=== PATIENT | male | born 1960 | race African-American/Black ===

== ENCOUNTER 2021-03-06 08:05 | Outpatient (CLI) | payer BC | END 2021-03-06 08:06 | disposition home or self-care (01) | LOC: BICCT 08:05 | PROVIDERS: ATTEND Family Medicine | DX: R16.0 Hepatomegaly, not elsewhere classified (principal); D18.03 Hemangioma of intra-abdominal structures; K31.89 Other diseases of stomach and duodenum | CPT/HCPCS: 74170 ==

== ENCOUNTER 2021-06-29 13:16 | Outpatient (CLI) | payer BC | END 2021-06-29 13:17 | disposition home or self-care (01) | LOC: TBSIIMAG 13:16 | PROVIDERS: ATTEND Nurse Practitioner Family | DX: M47.26 Other spondylosis with radiculopathy, lumbar region (principal); M47.817 Spondylosis without myelopathy or radiculopathy, lumbosacral region | CPT/HCPCS: 72148 ==